=== PATIENT | female | born 1945 | race Caucasian/White ===

== ENCOUNTER 2025-02-15 09:07 | Inpatient (IN) ==
[2025-02-15] MEDS: ACETAMINOPHEN 325 MG TABLET PO ONE (10:00)
[2025-02-15 10:14] LABS: Basophils # (Auto) 0.05 K/mcL (0.00-0.30); Basophils % (Auto) 0.3 % (0.0-2.0); Eosinophils # (Auto) 0.07 K/mcL (0.00-0.70); Eosinophils % (Auto) 0.4 % (0.0-7.0); Hematocrit 33.2 % (34.1-44.9); Hemoglobin 11.2 g/dL (11.2-15.7); Lymphocytes % (Auto) 13.2 % (15.5-49.0); Mean Cell Volume 94.9 fL (80.0-100.0); Mean Corpuscular HGB Conc 33.7 g/dL (31.0-36.0); Mean Platelet Volume 10.8 fL (8.8-12.5); Monocytes # (Auto) 1.33 K/mcL (0.10-0.90); Monocytes % (Auto) 7.6 % (1.0-12.0); Neutrophils % (Auto) 77.9 % (38.0-78.0); Platelet Count 151 K/mcL (140-440); Red Cell Distribution Width 11.8 % (11.5-14.5); WBC 17.5 K/mcL (4.5-11.0)
[2025-02-15] MEDS: 0.9 % SODIUM CHLORIDE 1,000 ML IV ONE (10:14)
[2025-02-15] MEDS: AZITHROMYCIN 250 MG TABLET PO ONE (10:51)
[2025-02-15] MEDS: 0.9 % SODIUM CHLORIDE 500 ML IV ONE (10:51)
[2025-02-15] MEDS: cefTRIAXone 2 GM in DEXTROSE 5% IN WATER 50 ML IV ONE (10:51)
[2025-02-15 12:16] LABS: ALT/SGPT 8 U/L (<40); AST/SGOT 17 U/L (<32); Albumin 3.5 gm/dL (3.2-5.2); Albumin/Globulin Ratio 1.1 (1.0-2.3); Alkaline Phosphatase 79 U/L (39-117); Bilirubin,Total 0.7 mg/dL (0.1-1.0); Blood Urea Nitrogen 40 mg/dL (8-23); Calcium 8.6 mg/dL (8.6-10.4); Carbon Dioxide 28 mmol/L (22-30); Chloride 91 mmol/L (96-108); Globulin 3.1 gm/dL (2.2-3.7); Glomerular Filtration Rate 6; Glucose 233 mg/dL (70-105); Potassium 3.4 mmol/L (3.3-5.1); Sodium 134 mmol/L (133-145)
[2025-02-15 12:35] LABS: Appearance,Urine Clear (Clear); Bacteria,Urine 0 /hpf (0); Bilirubin,Urine Negative (Negative); Color,Urine Yellow; Glucose,Urine (UA) 250 mg/dL (Negative); Ketones,Urine Negative (Negative); Leukocyte Esterase,Urine Negative /uL (Negative); Nitrate,Urine Negative (Negative); Protein,Urine >=300 mg/dL (Negative); Urine Blood Negative ery/mcL (Negative); Urine RBC 0 /hpf (0-3); Urine Squamous Epithelial Cell 5 /hpf (0-4); Urine WBC 0 /hpf (0-4); Urobilinogen,Urine Normal
[2025-02-15] MEDS: DILTIAZEM 125 MG in DEXTROSE 5% IN WATER 100 ML IV SCH (12:50)
[2025-02-15 15:34] LABS: Thyroid Stimulating Hormone 1.44 uIU/mL (0.27-5.01)
[2025-02-15] MEDS ORDERED: SENNOSIDES 1 TABLET PO PRN (17:53)
[2025-02-15] MEDS ORDERED: POLYETHYLENE GLYCOL 3350 17 GM PACKET PO PRN (17:53)
[2025-02-15] MEDS ORDERED: POTASSIUM CHLORIDE 20 MEQ TABLET PO PRN ×2 (17:53)
[2025-02-15] MEDS ORDERED: DEXTROSE 50% 50 ML VIAL IV PRN (17:53)
[2025-02-15] MEDS ORDERED: MAGNESIUM SULFATE 2 GM/50 ML BAG IV PRN (17:53)
[2025-02-15] MEDS ORDERED: METOCLOPRAMIDE 10 MG/2 ML VIAL IV PRN (17:53)
[2025-02-15] MEDS ORDERED: POTASSIUM CHLORIDE 40 MEQ in DEXTROSE 5% IN WATER 500 ML IV PRN (17:53)
[2025-02-15] MEDS ORDERED: DEXTROSE 31 GM ORAL.SUSP PO PRN (17:53)
[2025-02-15] MEDS ORDERED: METOPROLOL TARTRATE 5 MG/5 ML VIAL IV PRN (17:53)
[2025-02-15] MEDS ORDERED: ONDANSETRON 4 MG/2 ML VIAL IV PRN (17:53)
[2025-02-15] MEDS ORDERED: 0.9 % SODIUM CHLORIDE 1,000 ML IV PRN (18:37)
[2025-02-15] MEDS: cefTRIAXone 2 GM in DEXTROSE 5% IN WATER 50 ML IV SCH (19:03)
[2025-02-15] MEDS: AZITHROMYCIN 500 MG in DEXTROSE 5% IN WATER 250 ML IV SCH (19:19)
[2025-02-15] MEDS: INSULIN LISPRO 1 UNIT/0.01 ML UNIT SQ SCH (19:20)
[2025-02-15] MEDS: 0.9 % SODIUM CHLORIDE 10 ML SYRINGE IV SCH (19:23)
[2025-02-15] MEDS: IPRATROPIUM/ALBUTEROL 3 ML AMPUL.NEB NEB PRN (20:45)
[2025-02-15] MEDS: QUEtiapine 100 MG TABLET PO SCH (21:03)
[2025-02-15] MEDS: DOCUSATE SODIUM 100 MG CAPSULE PO SCH (21:03)
[2025-02-15] MEDS: HEPARIN 5,000 UNIT/ML VIAL SQ SCH (21:03)
[2025-02-15] MEDS: ACETAMINOPHEN 325 MG TABLET PO PRN (21:14)
[2025-02-16 06:53] LABS: Basophils # (Auto) 0.07 K/mcL (0.00-0.30); Basophils % (Auto) 0.3 % (0.0-2.0); Eosinophils % (Auto) 0.4 % (0.0-7.0); Hematocrit 34.2 % (34.1-44.9); Hemoglobin 10.6 g/dL (11.2-15.7); Lymphocytes % (Auto) 15.2 % (15.5-49.0); Mean Cell Volume 103.6 fL (80.0-100.0); Mean Platelet Volume 11.7 fL (8.8-12.5); Monocytes # (Auto) 1.87 K/mcL (0.10-0.90); Monocytes % (Auto) 8.1 % (1.0-12.0); Neutrophils % (Auto) 75.4 % (38.0-78.0); Platelet Count 142 K/mcL (140-440); Red Cell Distribution Width 12.2 % (11.5-14.5); WBC 23.1 K/mcL (4.5-11.0)
[2025-02-16 07:15] LABS: ALT/SGPT 7 U/L (<40); AST/SGOT 23 U/L (<32); Albumin 3.1 gm/dL (3.2-5.2); Albumin/Globulin Ratio 1.1 (1.0-2.3); Alkaline Phosphatase 87 U/L (39-117); Bilirubin,Direct 0.2 mg/dL (<0.3); Bilirubin,Total 0.5 mg/dL (0.1-1.0); Blood Urea Nitrogen 49 mg/dL (8-23); Calcium 8.7 mg/dL (8.6-10.4); Carbon Dioxide 21 mmol/L (22-30); Chloride 93 mmol/L (96-108); Globulin 2.9 gm/dL (2.2-3.7); Glomerular Filtration Rate 5; Glucose 160 mg/dL (70-105); Lactate Dehydrogenase 337 U/L (135-225); Phosphorous 5.7 mg/dL (2.5-4.5); Potassium 3.8 mmol/L (3.3-5.1); Sodium 138 mmol/L (133-145); Triglycerides 200 mg/dL (<150); Uric Acid 8.4 mg/dL (2.5-8.0)
[2025-02-16] MEDS ORDERED: VANCOMYCIN PER PHARMACY IV SCH (07:35)
[2025-02-16 08:13] LABS: Eosinophils % (Manual) 2 % (0-7); Lymphocytes % 15 % (15-49); Monocytes % (Manual) 2 % (1-12); Platelet Estimate NORMAL (Normal); RBC Morphology NORMAL (Normal); Reactive Lymphocytes 3 % (0-2); Segmented Neutrophils % 78 % (38-78)
[2025-02-16] MEDS: ATENOLOL 50 MG TABLET PO SCH (08:28)
[2025-02-16] MEDS: LEVOTHYROXINE 50 MCG TABLET PO SCH (08:47)
[2025-02-16] MEDS: INSULIN GLARGINE, HUMAN 1 UNIT/0.01 ML SQ SCH (09:37)
[2025-02-16] MEDS ORDERED: DILTIAZEM 125 MG in DEXTROSE 5% IN WATER 100 ML IV PRN (14:01)
[2025-02-16] MEDS: AZITHROMYCIN 500 MG in 0.9 % SODIUM CHLORIDE 250 ML IV SCH (14:32)
[2025-02-16] MEDS: VANCOMYCIN 1,500 MG in 0.9 % SODIUM CHLORIDE 500 ML IV ONE (14:32)
[2025-02-16] MEDS: cefTRIAXone 2 GM in DEXTROSE 5% IN WATER 50 ML IV SCH (15:30)
[2025-02-16] MEDS: APIXABAN 5 MG TABLET PO SCH (20:43)
[2025-02-17 06:14] LABS: Vancomycin,Random 16.7 ug/mL
[2025-02-17 07:50] LABS: ALT/SGPT 11 U/L (<40); AST/SGOT 25 U/L (<32); Albumin 3.1 gm/dL (3.2-5.2); Alkaline Phosphatase 97 U/L (39-117); Bilirubin,Total 0.4 mg/dL (0.1-1.0); Blood Urea Nitrogen 27 mg/dL (8-23); Calcium 8.4 mg/dL (8.6-10.4); Carbon Dioxide 25 mmol/L (22-30); Chloride 93 mmol/L (96-108); Globulin 3.2 gm/dL (2.2-3.7); Glomerular Filtration Rate 8; Glucose 162 mg/dL (70-105); Potassium 3.6 mmol/L (3.3-5.1); Sodium 135 mmol/L (133-145)
[2025-02-17] MEDS: DILTIAZEM 240 MG CAP.XL.24H PO SCH (08:12)
[2025-02-17 09:07] LABS: Basophils # (Auto) 0.08 K/mcL (0.00-0.30); Basophils % (Auto) 0.5 % (0.0-2.0); Eosinophils # (Auto) 0.11 K/mcL (0.00-0.70); Eosinophils % (Auto) 0.7 % (0.0-7.0); Hematocrit 32.4 % (34.1-44.9); Hemoglobin 10.6 g/dL (11.2-15.7); Lymphocytes # (Auto) 3.23 K/mcL (1.50-4.80); Lymphocytes % (Auto) 19.7 % (15.5-49.0); Mean Cell Volume 94.7 fL (80.0-100.0); Mean Corpuscular HGB Conc 32.7 g/dL (31.0-36.0); Mean Platelet Volume 12.3 fL (8.8-12.5); Monocytes # (Auto) 1.65 K/mcL (0.10-0.90); Monocytes % (Auto) 10.1 % (1.0-12.0); Neutrophils % (Auto) 67.9 % (38.0-78.0); Platelet Count 161 K/mcL (140-440); RBC 3.42 M/mcL (3.59-5.38); Red Cell Distribution Width 12.1 % (11.5-14.5); WBC 16.4 K/mcL (4.5-11.0)
[2025-02-17] MEDS ORDERED: LIDOCAINE W/EPI 1% 20 ML VIAL IJ ONE (16:07)
[2025-02-17] MEDS: VANCOMYCIN 500 MG in 0.9 % SODIUM CHLORIDE 100 ML IV ONE (16:20)
[2025-02-17] MEDS ORDERED: ATENOLOL 50 MG TABLET PO SCH (16:36)
[2025-02-17] MEDS: ATENOLOL 50 MG TABLET PO SCH (21:16)
[2025-02-18] MEDS: DILTIAZEM 30 MG TABLET PO SCH (05:09)
[2025-02-18 06:50] LABS: Basophils # (Auto) 0.08 K/mcL (0.00-0.30); Basophils % (Auto) 0.5 % (0.0-2.0); Eosinophils # (Auto) 0.12 K/mcL (0.00-0.70); Eosinophils % (Auto) 0.8 % (0.0-7.0); Hematocrit 32.7 % (34.1-44.9); Hemoglobin 10.9 g/dL (11.2-15.7); Lymphocytes # (Auto) 3.02 K/mcL (1.50-4.80); Lymphocytes % (Auto) 20.3 % (15.5-49.0); Mean Cell Volume 96.2 fL (80.0-100.0); Mean Corpuscular HGB Conc 33.3 g/dL (31.0-36.0); Mean Platelet Volume 11.6 fL (8.8-12.5); Monocytes % (Auto) 9.4 % (1.0-12.0); Neutrophils % (Auto) 67.6 % (38.0-78.0); Platelet Count 192 K/mcL (140-440); WBC 14.9 K/mcL (4.5-11.0)
[2025-02-18 07:11] LABS: ALT/SGPT 10 U/L (<40); AST/SGOT 17 U/L (<32); Albumin 3.2 gm/dL (3.2-5.2); Alkaline Phosphatase 93 U/L (39-117); Bilirubin,Total 0.4 mg/dL (0.1-1.0); Blood Urea Nitrogen 23 mg/dL (8-23); Calcium 8.7 mg/dL (8.6-10.4); Carbon Dioxide 25 mmol/L (22-30); Chloride 92 mmol/L (96-108); Globulin 3.1 gm/dL (2.2-3.7); Glomerular Filtration Rate 11; Glucose 168 mg/dL (70-105); Potassium 3.5 mmol/L (3.3-5.1); Sodium 135 mmol/L (133-145)
[2025-02-18 07:24] LABS: Vancomycin,Random 16.4 ug/mL
[2025-02-19 06:24] LABS: Vancomycin,Random 14.8 ug/mL
[2025-02-19 06:34] LABS: Basophils # (Auto) 0.06 K/mcL (0.00-0.30); Basophils % (Auto) 0.4 % (0.0-2.0); Eosinophils # (Auto) 0.28 K/mcL (0.00-0.70); Eosinophils % (Auto) 1.9 % (0.0-7.0); Hematocrit 31.7 % (34.1-44.9); Hemoglobin 10.4 g/dL (11.2-15.7); Lymphocytes # (Auto) 2.85 K/mcL (1.50-4.80); Lymphocytes % (Auto) 19.7 % (15.5-49.0); Mean Cell Volume 95.5 fL (80.0-100.0); Mean Corpuscular HGB Conc 32.8 g/dL (31.0-36.0); Mean Platelet Volume 11.4 fL (8.8-12.5); Monocytes # (Auto) 1.31 K/mcL (0.10-0.90); Neutrophils % (Auto) 66.1 % (38.0-78.0); Platelet Count 202 K/mcL (140-440); RBC 3.32 M/mcL (3.59-5.38); WBC 14.5 K/mcL (4.5-11.0)
[2025-02-19 07:07] LABS: ALT/SGPT 10 U/L (<40); AST/SGOT 15 U/L (<32); Alkaline Phosphatase 83 U/L (39-117); Bilirubin,Total 0.3 mg/dL (0.1-1.0); Blood Urea Nitrogen 46 mg/dL (8-23); Calcium 8.7 mg/dL (8.6-10.4); Carbon Dioxide 25 mmol/L (22-30); Chloride 93 mmol/L (96-108); Glomerular Filtration Rate 7; Glucose 160 mg/dL (70-105); Potassium 3.8 mmol/L (3.3-5.1); Sodium 134 mmol/L (133-145)
[2025-02-19] MEDS: VANCOMYCIN 500 MG in 0.9 % SODIUM CHLORIDE 100 ML IV ONE (18:02)
[2025-02-20 06:08] LABS: Basophils # (Auto) 0.08 K/mcL (0.00-0.30); Basophils % (Auto) 0.5 % (0.0-2.0); Eosinophils # (Auto) 0.33 K/mcL (0.00-0.70); Eosinophils % (Auto) 2.1 % (0.0-7.0); Hematocrit 29.2 % (34.1-44.9); Hemoglobin 9.6 g/dL (11.2-15.7); Lymphocytes # (Auto) 3.11 K/mcL (1.50-4.80); Lymphocytes % (Auto) 19.5 % (15.5-49.0); Mean Cell Volume 95.1 fL (80.0-100.0); Mean Corpuscular HGB Conc 32.9 g/dL (31.0-36.0); Mean Platelet Volume 11.4 fL (8.8-12.5); Monocytes # (Auto) 1.43 K/mcL (0.10-0.90); Neutrophils % (Auto) 65.6 % (38.0-78.0); Platelet Count 223 K/mcL (140-440); RBC 3.07 M/mcL (3.59-5.38); Red Cell Distribution Width 11.8 % (11.5-14.5); WBC 15.9 K/mcL (4.5-11.0)
[2025-02-20 06:52] LABS: ALT/SGPT 10 U/L (<40); AST/SGOT 14 U/L (<32); Albumin/Globulin Ratio 1.1 (1.0-2.3); Alkaline Phosphatase 82 U/L (39-117); Bilirubin,Total 0.3 mg/dL (0.1-1.0); Blood Urea Nitrogen 60 mg/dL (8-23); Calcium 8.5 mg/dL (8.6-10.4); Carbon Dioxide 22 mmol/L (22-30); Chloride 93 mmol/L (96-108); Globulin 2.8 gm/dL (2.2-3.7); Glomerular Filtration Rate 5; Glucose 126 mg/dL (70-105); Potassium 3.9 mmol/L (3.3-5.1); Sodium 134 mmol/L (133-145)
[2025-02-21 06:53] LABS: Basophils # (Auto) 0.07 K/mcL (0.00-0.30); Basophils % (Auto) 0.4 % (0.0-2.0); Eosinophils # (Auto) 0.42 K/mcL (0.00-0.70); Eosinophils % (Auto) 2.5 % (0.0-7.0); Hematocrit 32.7 % (34.1-44.9); Hemoglobin 10.6 g/dL (11.2-15.7); Lymphocytes # (Auto) 3.76 K/mcL (1.50-4.80); Lymphocytes % (Auto) 21.9 % (15.5-49.0); Mean Cell Volume 97.3 fL (80.0-100.0); Mean Corpuscular HGB Conc 32.4 g/dL (31.0-36.0); Mean Platelet Volume 10.9 fL (8.8-12.5); Monocytes # (Auto) 1.44 K/mcL (0.10-0.90); Monocytes % (Auto) 8.4 % (1.0-12.0); Neutrophils % (Auto) 63.2 % (38.0-78.0); Platelet Count 273 K/mcL (140-440); RBC 3.36 M/mcL (3.59-5.38); Red Cell Distribution Width 11.9 % (11.5-14.5); WBC 17.1 K/mcL (4.5-11.0)
[2025-02-21 06:55] LABS: ALT/SGPT 10 U/L (<40); AST/SGOT 18 U/L (<32); Albumin 3.2 gm/dL (3.2-5.2); Alkaline Phosphatase 93 U/L (39-117); Bilirubin,Total 0.3 mg/dL (0.1-1.0); Blood Urea Nitrogen 71 mg/dL (8-23); Calcium 8.9 mg/dL (8.6-10.4); Carbon Dioxide 20 mmol/L (22-30); Chloride 94 mmol/L (96-108); Globulin 3.2 gm/dL (2.2-3.7); Glomerular Filtration Rate 5; Glucose 133 mg/dL (70-105); Potassium 4.1 mmol/L (3.3-5.1); Sodium 136 mmol/L (133-145)
[2025-02-21 07:18] LABS: Vancomycin,Random 16.2 ug/mL
[2025-02-22 06:50] LABS: Basophils # (Auto) 0.08 K/mcL (0.00-0.30); Basophils % (Auto) 0.5 % (0.0-2.0); Eosinophils # (Auto) 0.42 K/mcL (0.00-0.70); Eosinophils % (Auto) 2.9 % (0.0-7.0); Hematocrit 29.9 % (34.1-44.9); Hemoglobin 9.8 g/dL (11.2-15.7); Lymphocytes # (Auto) 3.09 K/mcL (1.50-4.80); Lymphocytes % (Auto) 21.2 % (15.5-49.0); Mean Cell Volume 97.1 fL (80.0-100.0); Mean Corpuscular HGB Conc 32.8 g/dL (31.0-36.0); Mean Platelet Volume 10.8 fL (8.8-12.5); Monocytes # (Auto) 1.19 K/mcL (0.10-0.90); Monocytes % (Auto) 8.2 % (1.0-12.0); Neutrophils % (Auto) 63.6 % (38.0-78.0); Platelet Count 271 K/mcL (140-440); RBC 3.08 M/mcL (3.59-5.38); Red Cell Distribution Width 12.2 % (11.5-14.5); WBC 14.6 K/mcL (4.5-11.0)
[2025-02-22 07:28] LABS: Vancomycin,Random 15.4 ug/mL
[2025-02-22 07:36] LABS: ALT/SGPT 10 U/L (<40); AST/SGOT 13 U/L (<32); Albumin 3.2 gm/dL (3.2-5.2); Albumin/Globulin Ratio 1.1 (1.0-2.3); Alkaline Phosphatase 88 U/L (39-117); Bilirubin,Total 0.2 mg/dL (0.1-1.0); Blood Urea Nitrogen 79 mg/dL (8-23); Calcium 8.7 mg/dL (8.6-10.4); Carbon Dioxide 20 mmol/L (22-30); Chloride 93 mmol/L (96-108); Globulin 2.9 gm/dL (2.2-3.7); Glomerular Filtration Rate 4; Glucose 98 mg/dL (70-105); Sodium 133 mmol/L (133-145)
[2025-02-22 17:47] LABS: INR 1.2 (0.9-1.1); Partial Thromboplastin Time 31.1 sec (20.0-37.0); Prothrombin Time 16.3 sec (11.9-14.5)
[2025-02-23] MEDS ORDERED: FLUMAZENIL 0.1 MG/ML ML IV PRN (06:05)
[2025-02-23] MEDS ORDERED: NALOXONE HCL 0.4 MG/ML VIAL IV PRN (06:05)
[2025-02-23 06:36] LABS: Basophils # (Auto) 0.05 K/mcL (0.00-0.30); Basophils % (Auto) 0.3 % (0.0-2.0); Eosinophils # (Auto) 0.35 K/mcL (0.00-0.70); Eosinophils % (Auto) 2.4 % (0.0-7.0); Lymphocytes # (Auto) 2.72 K/mcL (1.50-4.80); Lymphocytes % (Auto) 18.6 % (15.5-49.0); Mean Cell Volume 93.8 fL (80.0-100.0); Mean Corpuscular HGB Conc 33.3 g/dL (31.0-36.0); Mean Platelet Volume 11.4 fL (8.8-12.5); Monocytes # (Auto) 1.09 K/mcL (0.10-0.90); Monocytes % (Auto) 7.5 % (1.0-12.0); Neutrophils % (Auto) 68.4 % (38.0-78.0); Platelet Count 240 K/mcL (140-440); RBC 2.88 M/mcL (3.59-5.38); Red Cell Distribution Width 12.1 % (11.5-14.5); WBC 14.6 K/mcL (4.5-11.0)
[2025-02-23] MEDS: MIDAZOLAM 2 MG/2 ML VIAL IV ONE (07:15)
[2025-02-23] MEDS: fentaNYL 100 MCG/2 ML VIAL IV ONE (07:15)
[2025-02-23 07:31] LABS: ALT/SGPT 12 U/L (<40); AST/SGOT 13 U/L (<32); Albumin 3.1 gm/dL (3.2-5.2); Albumin/Globulin Ratio 1.1 (1.0-2.3); Alkaline Phosphatase 85 U/L (39-117); Bilirubin,Total 0.2 mg/dL (0.1-1.0); Blood Urea Nitrogen 85 mg/dL (8-23); Calcium 8.6 mg/dL (8.6-10.4); Carbon Dioxide 19 mmol/L (22-30); Chloride 92 mmol/L (96-108); Globulin 2.8 gm/dL (2.2-3.7); Glomerular Filtration Rate 4; Glucose 157 mg/dL (70-105); Potassium 4.3 mmol/L (3.3-5.1); Sodium 132 mmol/L (133-145)
[2025-02-23] MEDS: fentaNYL 100 MCG/2 ML VIAL ONE (08:41)
[2025-02-23] MEDS: MIDAZOLAM 2 MG/2 ML VIAL ONE (08:41)
[2025-02-23] MEDS: VANCOMYCIN 1,500 MG in 0.9 % SODIUM CHLORIDE 500 ML IV ONE (10:48)
== END 2025-02-23 12:10 | DRG 673 ==
LOC: ED 09:07 → ICU 17:50 → MEDSUR 02-20 07:55
PROVIDERS: ADMIT Internal Medicine; ATTEND Internal Medicine